=== PATIENT | female | born 1985 | race Hispanic/Latino ===

== ENCOUNTER 2017-09-23 08:27 | Emergency (ER) | payer OTHER ==
[2017-09-23 08:30] VITALS: BMI 24.7
[2017-09-23 08:32] VITALS: O2SAT 99
--- NOTE | 2017-09-23 09:30 | ED PDOC ---
Lower Extremity Pain/Injury Time Seen by Provider: 09/23/17 08:58 Chief Complaint (Nursing): Hip Pain Chief Complaint (Provider): Hip pain History Per: Patient History/Exam Limitations: no limitations Onset/Duration Of Symptoms: Days (Friday) Current Symptoms Are (Timing): Still Present Additional Complaint(s): Pt. with pain to the left lateral lower hip area. No injury that she recalls but is pain on moving around. No numbness, tingles, weakness, back pain, abd pain. No calf pain, long distance travel, or hormone tx. Past Medical History Reviewed: Historical Data, Nursing Documentation, Vital Signs Vital Signs: Last Vital Signs Temp 97.9 F 09/23/17 08:30 Pulse 82 09/23/17 08:30 Resp 16 09/23/17 08:30 BP 117/75 09/23/17 08:30 Pulse Ox 99 09/23/17 08:30 - Medical History PMH: No Chronic Diseases - Surgical History Surgical History: No Surg Hx Denies: Appendectomy - Family History Family History: States: Unknown Family Hx - Living Arrangements Living Arrangements: With Family - Social History Alcohol: None Drugs: Denies - Home Medications Home Medications: Ambulatory Orders Medication Instructions Recorded Famotidine [Pepcid] 20 mg PO BID #30 tab 11/19/14 Tramadol Hydrochloride [Tramadol] 50 mg PO TID #15 tab 11/19/14 Acetaminophen [Tylenol] 325 mg PO Q8 PRN #30 tab 04/07/15 Doxylamine/Pyridoxine HCl (B6) 1 - 2 each PO HS PRN #14 tablet. 01/15/16 [Rashida Cosme 10-10 mg Tablet] Ibuprofen [Motrin] 600 mg PO TID 7 Days tab 09/23/17 - Allergies Allergies/Adverse Reactions: Allergies Allergy/AdvReac Type Severity Reaction Status Date / Time No Known Allergies Allergy Verified 09/23/17 08:47 Review of Systems Constitutional: Negative for: Fever, Weakness Cardiovascular: Negative for: Chest Pain, Edema, Light Headedness Respiratory: Negative for: Shortness of Breath Gastrointestinal: Negative for: Nausea, Vomiting, Abdominal Pain Musculoskeletal: Positive for: Leg Pain. Negative for: Neck Pain, Shoulder Pain , Arm Pain, Back Pain, Hand Pain Neurological: Negative for: Weakness, Numbness, Incoordination Physical Exam - Reviewed Nursing Documentation Reviewed: Yes Vital Signs Reviewed: Yes - Physical Exam Appears: Positive for: Non-toxic, No Acute Distress Head Exam: Positive for: ATRAUMATIC, NORMAL INSPECTION, NORMOCEPHALIC Skin: Positive for: Normal Color, Warm, DRY Cardiovascular/Chest: Positive for: Regular Rate, Rhythm Respiratory: Positive for: CNT, Normal Breath Sounds Gastrointestinal/Abdominal: Positive for: Normal Exam, Bowel Sounds, Soft. Negative for: Tenderness Back: Positive for: Normal Inspection. Negative for: L CVA Tenderness, R CVA Tenderness Extremity: Positive for: Tenderness (L lateral upper thigh close to the hip; no erythema or echymosis; 2+ popliteral pulse. Pain on movement mild but has full ROM.). Negative for: Calf Tenderness Neurologic/Psych: Positive for: Alert, Oriented - ECG O2 Sat by Pulse Oximetry: 99 Pulse Ox Interpretation: Normal - Radiology X-Ray: Read By Radiologist X-Ray Interpretation: No Acute Disease - Progress ED Course And Treament: 1021: Stable. AAOx3. Pain free. Tolerated po. Ambulated with no issues. Fu with pcp. Disposition - Clinical Impression Clinical Impression: Hip pain - Patient ED Disposition Is Patient to be Admitted: No Counseled Patient/Family Regarding: Studies Performed, Diagnosis, Need For Followup, Rx Given - Disposition Referrals: [facility] [Outside] - 09/24/17 Disposition: Routine/Home Disposition Time: 10:21 Condition: STABLE Additional Instructions: Return if not better in 3 days. Prescriptions: Ibuprofen [Motrin] 600 mg PO TID 7 Days tab Instructions: Hip Pain Print Language: CROATIAN
--- NOTE | 2017-09-23 10:14 | RAD ---
PROCEDURE: Left Femur Radiographs. HISTORY: pain COMPARISON: None. TECHNIQUE: AP and Lateral Radiographs of the left femur. FINDINGS: FEMUR: No acute fracture. SOFT TISSUES: Normal. OTHER FINDINGS: None. IMPRESSION: No demonstrated fracture or dislocation.
--- NOTE | 2017-09-23 10:14 | RAD ---
PROCEDURE: Left Hip X-ray Radiographs. HISTORY: pain COMPARISON: None. FINDINGS: BONES: No acute fracture. JOINTS: Unremarkable. SOFT TISSUES: Normal. OTHER FINDINGS: Prominent amount of retained colonic stool. IMPRESSION: No demonstrated fracture or dislocation.
[2017-09-23 10:31] VITALS: BP 128/70; PULSE 76; RESP 18; TEMP 98.2
== END 2017-09-23 10:54 | disposition home or self-care (01) ==
LOC: H.ER 08:27
DX: M25.552 Pain in left hip (principal)

== ENCOUNTER 2018-09-29 15:08 | Emergency (ER) | payer OTHER, SELFPAY ==
[2018-09-29 15:09] VITALS: BMI 24.7
[2018-09-29 15:38] VITALS: BP 123/80; PULSE 73; RESP 16; TEMP 98.1; O2SAT 99
[2018-09-29] MEDS ORDERED: Albuterol 0.083% Inhal Sol (2.5 mg/3 mL) UD INH STA (15:46)
[2018-09-29] MEDS ORDERED: Albuterol 0.083% Inhal Sol (2.5 mg/3 mL) UD ONE (15:57)
--- NOTE | 2018-09-29 16:25 | ED PDOC ---
HPI: Influenza Time Seen by Provider: 09/29/18 15:38 Chief Complaint: Cough, Cold, Congestion Chief Complaint (Provider): Cough History Per: Patient Exam Limitations: no limitations Have you had recent travel within the past 21 days to any of: No Onset/Duration Of Symptoms: Days (1x week) Symptoms include: fever (tmax 102), sore throat, cough, nasal congestion, other (phlegm) Sick Contacts (Context): Family Member(s) (daughter and sister) Additional complaint(s):: 33 year old female with a past medical history of asthma presents to the ED for an evaluation of a cough sometimes productive of phlegm ongoing for 1x week. Patient reports having associated symptoms of a sore throat, nasal congestion, and a fever (tmax last night 102 F). Patient reports taking tylenol and motrin for her fever, and mucinex for the cough with no relief. Patient states that her daughter and sister recently came from [place] (on 09/18/2018) with similar symptoms, took the same medications and their symptoms improved, but hers have not improved. Patient reports having some chest pain exclusively with the cough. Otherwise: (-) shortness of breath, (-) difficulty swallowing, (-) recent travel (-) abdominal pain (-) N/V/D (-) rash. PMD: Kenny Burdick MD Past Medical History Reviewed: Historical Data, Nursing Documentation, Vital Signs Vital Signs: Last Vital Signs Temp 98.1 F 09/29/18 15:35 Pulse 73 09/29/18 15:35 Resp 16 09/29/18 15:35 BP 123/80 09/29/18 15:35 Pulse Ox 99 09/29/18 15:35 DAWN Report Viewed: Yes - Medical History PMH: Asthma, Gastritis, Migraine - Surgical History Surgical History: Endoscopy - Family History Family History: States: No Known Family Hx - Social History Current smoker - smoking cessation education provided: No Alcohol: Social Drugs: Denies - Home Medications Home Medications: Ambulatory Orders Medication Instructions Recorded Famotidine [Pepcid] 20 mg PO BID #30 tab 11/19/14 Tramadol Hydrochloride [Tramadol] 50 mg PO TID #15 tab 11/19/14 Acetaminophen [Tylenol] 325 mg PO Q8 PRN #30 tab 04/07/15 Doxylamine/Pyridoxine HCl (B6) 1 - 2 each PO HS PRN #14 tablet. 01/15/16 [Rashida Cosme 10-10 mg Tablet] Ibuprofen [Motrin] 600 mg PO TID 7 Days tab 09/23/17 Acetaminophen [Acetaminophen 8 650 mg PO Q8 PRN #21 tablet.er 09/29/18 Hour] Albuterol Sulfate [Ventolin Hfa] 1 puff IH Q4 PRN #1 unit 09/29/18 Azithromycin [Z-Huang] 250 mg PO DAILY #6 tab 09/29/18 Promethazine DM [Phenergan DM 5 ml PO Q6 PRN #150 ml 09/29/18 Syrup] - Allergies Allergies/Adverse Reactions: Allergies Allergy/AdvReac Type Severity Reaction Status Date / Time No Known Allergies Allergy Verified 09/29/18 15:35 Review of Systems ROS Statement: Except As Marked, All Systems Reviewed And Found Negative Constitutional: Positive for: Fever (tmax 102 last night) ENT: Positive for: Nose Congestion, Throat Pain. Negative for: Other (difficulty swallowing) Cardiovascular: Positive for: Chest Pain (exclusively with cough) Respiratory: Positive for: Cough (sometimes productive of phlegm). Negative for: Shortness of Breath ((-) difficulty breathing) Physical Exam - Reviewed Nursing Documentation Reviewed: Yes Vital Signs Reviewed: Yes - Physical Exam Comments: GENERAL APPEARANCE: Patient is awake, alert, oriented x 3, in no acute distress. Resting comfortably. SKIN: Warm, dry; (-) cyanosis. EYES: (-) conjunctival injection ENMT: Mucous membranes moist. Airway patent: (-) stridor, (-)trismus. Pharynx: uvula midline (-) swelling/hypertrophy, (+) mild erythema to posterior pharynx, (-) exudate. TMs: nonbulging, nonerythematous bilaterally. NECK: Supple, FROM (-) tenderness, (-) stiffness, (-) lymphadenopathy (- )menigismus CHEST AND RESPIRATORY: (+) dry hacking cough (-) rhonchi, (-) rales, (-) wheezes; breath sounds equal bilaterally. Respirations even and nonlabored. HEART AND CARDIOVASCULAR: (-) irregularity ABDOMEN AND GI: Soft; (-) tenderness. EXTREMITIES: (-) deformity; (-) edema. NEURO AND PSYCH: Mental status as above. Cranial nerves grossly intact; strength symmetric. Gait: steady. Speech: clear. (-) facial asymmetry Medical Decision Making Medical Decision Makin:35 Clinical impression: 33 year old female with a cough Initial plan: * XRay chest 2 views * albuterol 0.083% inhal soln 2.5 mg INH * reevaluation 1630 Patient resting comfortably, reports improvement of symptoms after albuterol treatment. Pending CXR evaluation. 1730 CXR reviewed, radiology report follows HISTORY: cough fever COMPARISON: Chest x-ray performed 04/01/14 TECHNIQUE: Chest PA and lateral FINDINGS: LUNGS: No focal consolidation. Please note that chest x-ray has limited sensitivity for the detection of pulmonary masses. PLEURA: No significant pleural effusion identified. No definite pneumothorax . CARDIOVASCULAR: Heart size appears within normal limits. No atherosclerotic calcification present. OSSEOUS STRUCTURES: No acute osseous abnormality identified. VISUALIZED UPPER ABDOMEN: Unremarkable. OTHER FINDINGS: None. IMPRESSION: No focal consolidation. On re-evaluation, patient reports improvement of symptoms. On exam, patient remains AAOx3, in no acute distress. Lungs clear to auscultation, cardiac RRR, repeat neuro exam shows no focal findings. Vitals stable. Lab/Diagnostic results d/w the patient in great detail. Diagnosis of cough, probable bronchitis d/w the patient. Based on history, exam and diagnostic results, plan will be for outpatient follow up with PMD/clinic. Patient instructed to follow-up with pmd / referral provided / the clinic in 1- 2 days without fail. Advised to take medication as prescribed. Return to the emergency room at any time for any new or worsening symptoms. Patient states she fully agrees with and understands discharge instructions. States that she agrees with the plan and disposition. Verbalized and repeated discharge instructions and plan. I have given the patient opportunity to ask any additional questions. ScribeAttestation: Documented Dora Edwards, acting as a scribe for Belkys Bui. Provider ScribeAttestation: All medical record entries made by the Scribe were at my direction and personally dictated by me. I have reviewed the chart and agree that the record accurately reflects my personal performance of the history, physical exam, medical decision making, and the department course for this patient. I have also personally directed, reviewed, and agree with the discharge instructions and disposition. - ECG O2 Sat by Pulse Oximetry: 99 (RA) Pulse Ox Interpretation: Normal Disposition - Clinical Impression Clinical Impression: Cough in adult, Bronchitis - Patient ED Disposition Is Patient to be Admitted: No Counseled Patient/Family Regarding: Studies Performed, Diagnosis, Need For Followup, Rx Given - Disposition Referrals: Kenny Burdick MD [Staff Provider] - Disposition: Routine/Home Disposition Time: 17:30 Condition: STABLE Additional Instructions: The emergency medical care you received today was directed at your acute symptoms. If you were prescribed any medication, please fill it and take as directed. It may take several days for your symptoms to resolve. Return to the Emergency Department if your symptoms worsen, do not improve, or if you have any other problems. Please contact your doctor in 2 days for re-evaluation and follow up / or call one of the physicians/clinics you have been referred to that are listed on the Patient Visit Information form that is included in your discharge packet. Bring any paperwork you were given at discharge with you along with any medications you are taking to your follow up visit. Our treatment cannot replace ongoing medical care by a primary care provider (PCP) outside of the emergency department. Prescriptions: Acetaminophen [Acetaminophen 8 Hour] 650 mg PO Q8 PRN #21 tablet.er PRN Reason: Pain, Moderate (4-7) Albuterol Sulfate [Ventolin Hfa] 1 puff IH Q4 PRN #1 unit PRN Reason: Shortness Of Breath Azithromycin [Z-Huang] 250 mg PO DAILY #6 tab Promethazine DM [Phenergan DM Syrup] 5 ml PO Q6 PRN #150 ml PRN Reason: Cough Instructions: Cough in Adults, Acute Bronchitis, Bacterial Upper Respiratory Infection, Adult, Inhalers Forms: [employer] (Serbian) Print Language: FRENCH - POA Present On Arrival: None
--- NOTE | 2018-09-29 17:31 | RAD ---
HISTORY: cough fever COMPARISON: Chest x-ray performed 04/01/14 TECHNIQUE: Chest PA and lateral FINDINGS: LUNGS: No focal consolidation. Please note that chest x-ray has limited sensitivity for the detection of pulmonary masses. PLEURA: No significant pleural effusion identified. No definite pneumothorax . CARDIOVASCULAR: Heart size appears within normal limits. No atherosclerotic calcification present. OSSEOUS STRUCTURES: No acute osseous abnormality identified. VISUALIZED UPPER ABDOMEN: Unremarkable. OTHER FINDINGS: None. IMPRESSION: No focal consolidation.
== END 2018-09-29 17:54 | disposition home or self-care (01) ==
LOC: H.ER 15:08
DX: R05 Cough (principal); J45.909 Unspecified asthma, uncomplicated; Z79.899 Other long term (current) drug therapy

== ENCOUNTER 2018-11-30 13:30 | Emergency (ER) | payer OTHER ==
[2018-11-30 13:31] VITALS: BMI 24.7
[2018-11-30] MEDS ORDERED: Albuterol 0.083% Inhal Sol (2.5 mg/3 mL) UD INH STA (16:28)
[2018-11-30] MEDS ORDERED: guaiFENesin 200 mg/10 ml Syrup UD PO STA (16:28)
[2018-11-30] MEDS ORDERED: Naproxen 500 MG TAB PO STA (16:29)
[2018-11-30] MEDS ORDERED: guaiFENesin 100 mg/5 ml Syrup UD ONE (16:56)
[2018-11-30] MEDS ORDERED: Albuterol 0.083% Inhal Sol (2.5 mg/3 mL) UD ONE (16:56)
[2018-11-30] MEDS ORDERED: Naproxen 500 MG TAB PO ONE (16:57)
--- NOTE | 2018-11-30 16:57 | ED PDOC ---
HPI: Influenza Time Seen by Provider: 11/30/18 15:38 Chief Complaint: Cough, Cold, Congestion Chief Complaint (Provider): Fever, Cough, Sore Throat History Per: Patient Exam Limitations: no limitations Have you had recent travel within the past 21 days to any of: No Onset/Duration Of Symptoms: Days (a couple days) Sick Contacts (Context): Family Member(s) Additional complaint(s):: 33 year old female presents to the ED for evaluation of a tactile fever, cough productive of clear / yellow sputum, and throat pain unrelieved with [place] for the past couple days. Patient notes she also ran out of her albuterol pump at home which she normally takes for her bronchitis. Of note, she says her daughter is sick at home from the flu, and other family members are being evaluated currently for similar symptoms after arriving from [place]. Otherwise, denies chest pain, headache, dizziness, urinary symptoms, nausea, vomiting, diarrhea, ear pain, rash, and recent travel. LMP: 11/11/18 Past Medical History Reviewed: Historical Data, Nursing Documentation, Vital Signs Vital Signs: Last Vital Signs Temp 98.5 F 11/30/18 14:44 Pulse 89 11/30/18 14:44 Resp 16 11/30/18 14:44 BP 127/83 11/30/18 14:44 Pulse Ox 97 11/30/18 14:44 - Medical History PMH: Asthma, Bronchitis, Gastritis, Migraine - Surgical History Surgical History: Endoscopy Other surgeries: ovarian cyst removal - Family History Family History: States: Unknown Family Hx - Social History Current smoker - smoking cessation education provided: No - Home Medications Home Medications: Ambulatory Orders Medication Instructions Recorded Famotidine [Pepcid] 20 mg PO BID #30 tab 11/19/14 Tramadol Hydrochloride [Tramadol] 50 mg PO TID #15 tab 11/19/14 Acetaminophen [Tylenol] 325 mg PO Q8 PRN #30 tab 04/07/15 Doxylamine/Pyridoxine HCl (B6) 1 - 2 each PO HS PRN #14 tablet. 01/15/16 [Rashida Cosme 10-10 mg Tablet] Ibuprofen [Motrin] 600 mg PO TID 7 Days tab 09/23/17 Acetaminophen [Acetaminophen 8 650 mg PO Q8 PRN #21 tablet.er 09/29/18 Hour] Albuterol Sulfate [Ventolin Hfa] 1 puff IH Q4 PRN #1 unit 09/29/18 Azithromycin [Z-Huang] 250 mg PO DAILY #6 tab 09/29/18 Promethazine DM [Phenergan DM 5 ml PO Q6 PRN #150 ml 09/29/18 Syrup] Albuterol HFA [Ventolin HFA 90 1 puff IH Q4 PRN #1 inhaler 11/30/18 mcg/actuation (8 g)] Naproxen [Naprosyn] 500 mg PO BID PRN #20 tablet 11/30/18 Promethazine DM [Phenergan DM 5 ml PO Q6 PRN #150 ml 11/30/18 Syrup] Pseudoephedrine HCl [Sudafed 24 240 mg PO DAILY PRN #10 tab 11/30/18 Hour] - Allergies Allergies/Adverse Reactions: Allergies Allergy/AdvReac Type Severity Reaction Status Date / Time No Known Allergies Allergy Verified 11/30/18 14:46 Review of Systems ROS Statement: Except As Marked, All Systems Reviewed And Found Negative Constitutional: Positive for: Fever (tactile) ENT: Positive for: Throat Pain. Negative for: Ear Pain Cardiovascular: Negative for: Chest Pain Respiratory: Positive for: Cough, Sputum (clear / yellow) Gastrointestinal: Negative for: Nausea, Vomiting, Diarrhea Skin: Negative for: Rash Physical Exam - Reviewed Nursing Documentation Reviewed: Yes Vital Signs Reviewed: Yes - Physical Exam Comments: GENERAL APPEARANCE: Patient is awake, alert, oriented x 3, in no acute distress. Resting comfortably. SKIN: Warm, dry (-) rash (-) cyanosis ENMT: Pharynx: uvula midline (+) erythema, (-) exudates, (-) hypertrophy. TMs bilaterally: (-) erythema, (-) bulging. Nares: (+) clear rhinorrhea, (+) swelling to bilateral inferior turbinates, (-) sinus tenderness. NECK: FROM, Supple (-) tenderness (-) nuchal rigidity (-) lymphadenopathy CHEST AND RESPIRATORY: lungs clear to auscultation bilaterally (-) rhonchi, (-) rales, (-) wheezes; breath sounds equal bilaterally. Respirations even and nonlabored. HEART AND CARDIOVASCULAR: RRR, (-) irregularity ABDOMEN AND GI: Soft; (-) tenderness (-) distention (-) CVA tenderness. NEURO AND PSYCH: Mental status as above. Gait: steady. Speech: clear. (-) facial asymmetry. Normal cognition. Medical Decision Making Medical Decision Making: Initial Impression: cough, congestion, throat pain, probable URI Time: 1615 Initial Plan: --CXR --Influenza A B swab --Rapid strep --Throat culture --Naproxen 500mg PO --Robitussin 200mg PO --Albuterol 2.5mg INH --Reevaluation 1750 Rapid Strep: negative Influenza: negative CXR: no acute disease as read by Tanmay CALDWELL On re-evaluation, patient reports improvement of symptoms. On exam, patient remains AAOx3, in no acute distress. Vitals stable. Lab / Diagnostic results d/w the patient in great detail. Diagnosis of cough, sore throat, viral URI d/w the patient. Based on history, exam and diagnostic results, plan will be for outpatient follow up. Patient instructed to follow-up with pmd / referral provided / the clinic in 1- 2 days without fail. Advised to take medication as prescribed. Return to the emergency room at any time for any new or worsening symptoms. Patient states she fully agrees with and understands discharge instructions. States that she agrees with the plan and disposition. Verbalized and repeated discharge instructions and plan. I have given the patient opportunity to ask any additional questions. Scribe Attestation: Documented by Janet Adams, acting as a scribe for Belkys Donato PA-C. Provider Scribe Attestation: All medical record entries made by the Scribe were at my direction and personally dictated by me. I have reviewed the chart and agree that the record accurately reflects my personal performance of the history, physical exam, medical decision making, and the department course for this patient. I have also personally directed, reviewed, and agree with the discharge instructions and disposition. - Laboratory Results Urine POC: Negative - ECG O2 Sat by Pulse Oximetry: 97 (RA) Pulse Ox Interpretation: Normal Disposition - Clinical Impression Clinical Impression: Cough, Sore throat (viral), Nasal congestion, URI (upper respiratory infection) - Patient ED Disposition Is Patient to be Admitted: No Counseled Patient/Family Regarding: Studies Performed, Diagnosis, Need For Followup, Rx Given - Disposition Referrals: [facility] [Outside] Disposition: Routine/Home Disposition Time: 17:50 Condition: STABLE Additional Instructions: La atencin mdica de emergencia que recibi hoy se dirigi a caitie sntomas agudos. Si le recetaron algn medicamento, llnelo y tmelo segn las indicaciones. Los sntomas pueden tardar varios pemberton en resolverse. Regrese al Departamento de Emergencias si caitie sntomas empeoran, no mejoran o si tiene otros problemas. Comunquese con lew mdico dentro de 2 pemberton para babar nueva evaluacin y ted un seguimiento o llame a mabel de los mdicos / clnicas a los que browne sido referido y que figuran en el formulario de Informacin de visita al paciente que se incluye en lew [place] de brady. Lleve todos los documentos que recibi al momento del brady junto con los medicamentos que est tomando para lew visita de seguimiento. Nuestro tratamiento no puede reemplazar la atencin mdica continua por parte de un proveedor de atencin primaria (PCP) fuera del departamento de emergencias. Prescriptions: Albuterol HFA [Ventolin HFA 90 mcg/actuation (8 g)] 1 puff IH Q4 PRN #1 inhaler PRN Reason: Shortness Of Breath Naproxen [Naprosyn] 500 mg PO BID PRN #20 tablet PRN Reason: Pain, Moderate (4-7) Promethazine DM [Phenergan DM Syrup] 5 ml PO Q6 PRN #150 ml PRN Reason: Cough Pseudoephedrine HCl [Sudafed 24 Hour] 240 mg PO DAILY PRN #10 tab PRN Reason: Nasal Congestion Instructions: Viral Pharyngitis, Cough in Adults, Sore Throat in Adults, Viral Upper Respiratory Infection, Adult (DC), Cough, Runny Nose, and the Common Cold Forms: [employer] (Sierra Leonean) Print Language: CYPRIOT - POA Present On Arrival: None Results - Diagnostic Imaging Results Radiology Results Chest X-Ray 11/30/18 16:25 IMPRESSION: No acute findings identified. - Lab Results Lab Results: 11/30/18 11/30/18 16:52 16:52 Influenza Typ A,B (EIA) Negative for flu a/b Grp A Beta Strep Ag Negative
--- NOTE | 2018-11-30 18:02 | RAD ---
HISTORY: fever, cough COMPARISON: Chest x-ray performed 09/29/18 TECHNIQUE: Chest PA and lateral, 2 views FINDINGS: LUNGS: No focal consolidation. Please note that chest x-ray has limited sensitivity for the detection of pulmonary masses. PLEURA: No significant pleural effusion identified. No definite pneumothorax . CARDIOVASCULAR: The cardiomediastinal silhouette appears within normal limits of size. No atherosclerotic calcification present. OSSEOUS STRUCTURES: No acute osseous abnormality identified. VISUALIZED UPPER ABDOMEN: Unremarkable. OTHER FINDINGS: None. IMPRESSION: No acute findings identified.
[2018-11-30 18:25] VITALS: BP 122/80; PULSE 72; RESP 18; TEMP 98
[2018-12-02 19:31] VITALS: O2SAT 97
== END 2018-11-30 18:23 | disposition home or self-care (01) ==
LOC: H.ER 13:30
DX: R05 Cough (principal); J02.9 Acute pharyngitis, unspecified; R09.81 Nasal congestion; J06.9 Acute upper respiratory infection, unspecified; J45.909 Unspecified asthma, uncomplicated